=== PATIENT | male | born 1940 | race Caucasian/White ===

== ENCOUNTER 2024-12-01 18:05 | Emergency (ER) | payer MEDICARE, SELFPAY ==
[2024-12-01 18:06] VITALS: BP 150/79
[2024-12-01 18:42] VITALS: BMI 22.8
--- NOTE | 2024-12-01 20:23 | ED.GENMED ---
History of Present Illness
General
Chief Complaint: Musculo-Skeletal Complaint
Time Seen by Provider: 12/01/24 20:23
History of Present Illness
History of Present Illness:
REVIEW OF OLD RECORDS
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
Note:
CHIEF COMPLAINT(S)
Right ankle pain.
HISTORY OF PRESENT ILLNESS
The patient is an 84-year-old male who presented following an injury to the right ankle. According to the patient, the injury occurred while he was getting up from a low stool. He describes the incident as twisting his ankle while in the process of
standing up and turning. The patient explains that his foot rolled inward, resulting in a significant amount of pain in the right lateral malleolus region. He denies any associated symptoms such as head, neck, chest, or abdominal pain and confirms
the absence of pain in the contralateral ankle. The patient notes a sensation like 'somebodys sticking a needle' but only occasionally. He mentions a history of an umbilical hernia but no current knee pain.
PHYSICAL EXAM
- Nursing notes reviewed and vital signs reviewed.
- The tender area is over the right lateral malleolus with soft tissue swelling, suggestive of a sprain.
- No tenderness noted along the femur or tibia/fibula.
- No significant tenderness upon palpation of the foot bones
- General: Well appearing in no distress
- HEENT: Moist oral mucosa
- Cardiovascular: No chest wall tenderness
- Pulmonary: No respiratory distress
- Abdomen: Soft with no peritoneal signs, no tenderness
- Neurologic: Excellent strength all extremities, no coordination deficits
- Psychiatric: Appropriate mental status, normal insight and judgement
- Skin: No rash, no lesions
PLAN
1. Obtain and apply a splint to immobilize the right ankle. The splint can be removed as needed.
2. Review x-ray findings with radiology to confirm no acute fracture. The initial review indicates no fractures or need for surgical intervention.
3. Recommend elevation of the leg and limitation of weight-bearing activities as tolerated.
4. Discussed the option of pain management with medication; the patient currently manages pain with [id number] medications but can adjust as needed.
5. Advise follow-up should the pain persist or if there are changes in symptoms.
DIFFERENTIAL DIAGNOSIS
The Differential Diagnosis includes, in no particular order and is not limited to:
1. Ankle sprain
2. Ankle fracture
3. Achilles tendon injury
4. Anterior talofibular ligament tear
5. Calcaneal fracture
6. Osteoarthritis flare-up
7. Subtalar dislocation
8. Peroneal tendon injury
9. Sinus tarsi syndrome
10. Ankle impingement syndrome
CARE-UPDATE
12/01/24 - 20:53
The right ankle x-ray shows no acute abnormalities. The patient has been fitted with an splint and is to follow-up with orthopedics as an outpatient.
Past History
Past History
ED Past Medical History: Cancer (Gastric) and HTN
ED Past Surgical History: Cholecystectomy and Other
Patient has exhibited threatening behavior?: No
PSI?: No
Social History
Tobacco: Non-smoker
Phy Exam
Physical Exam
Physical Exam:
See HPI
Course
Orders/Labs/Results
Orders:
Orders
12/01/24 18:08
Ankle, Right 3 view CR [CR Ankle - Right Min 3 Views *] Urgent
Comment:
Reason For Exam: pain, injury
12/01/24 20:32
Air Splint Right-Treatment ONCE
Vital Signs
Initial and Last Documented VS:
Initial Vital Signs
Temp Pulse Resp BP Pulse Ox
36.3 C 67 16 150/79 98
12/01/24 18:06 12/01/24 18:06 12/01/24 18:06 12/01/24 18:06 12/01/24 18:06
Last Documented Vital Signs
Temp Pulse Resp BP Pulse Ox
36.3 C 67 16 150/79 98
12/01/24 18:06 12/01/24 18:06 12/01/24 18:06 12/01/24 18:06 12/01/24 18:06
*Pulse Oximetry
Patient hypoxic: no (98% on room air)
*Critical Care Note
Total Time (30-74mins, 75-104mins- exclusive of procedures): Not Applicable
ED Attending Note
-
Portions of this chart may have been created with voice recognition software.� Occasional wrong word or��sound alike� substitutions may have occurred due to the inherent limitations of voice recognition software.
Discharge Plan
Departure
Patient Disposition: Home (Routine Discharge)
Date of Disposition: 12/01/24
Time of Disposition: 20:51
Patient with high blood pressure during this ER visit?: Yes
Discharge Problem:
Right ankle sprain
Instructions: Ankle sprain, BLOOD PRESSURE
Prescriptions:
No Action
amlodipine 10 mg tablet
10 mg PO QPM
gabapentin 300 mg capsule
600 mg PO HS
cyanocobalamin (vitamin B-12) 1,000 mcg Tablet
1,000 mcg PO DAILY
aspirin 81 mg Tablet,Delayed Release (Dr/Ec)
81 mg PO DAILY
ascorbic acid (vitamin C) [Vitamin C] 500 mg Tablet
500 mg PO DAILY
bismuth subsalicylate [Pepto-Bismol] 262 mg/15 mL Suspension
524 mg PO QID PRN (Reason: gerd)
Referrals:
Dane Pérez MD [Active, Orthopedics]
Shira Guevara MD [Family Provider]
Activity Restrictions/Additional Instructions:
I do not see any clear sign of fracture on the ankle x-ray. If the radiologist sees something I did not I will call you later. I recommend that you follow-up with Dr. Pérez, orthopedics if symptoms persist or worsen. Tylenol is safest for pain.
Interventions
Interventions:
*Risk Screen - Suicide Last Done: 12/01/24 18:43
*General Assessment Last Done: 12/01/24 18:43
*Neglect/Abuse Screening Last Done: 12/01/24 18:43
*ED- Fall Risk Assessment Last Done: 12/01/24 18:43
*ED COVID-19 Vaccine History Last Done: 12/01/24 18:43
*Nursing Disposition Last Done: 12/01/24 20:59
ED-Musculoskeletal Assessment Last Done: 12/01/24 18:44
Discharge Date and Time
Discharge Date/Time: 12/01/24 21:00
Print Language: MAURITANIAN
== END 2024-12-01 21:00 | disposition home or self-care (01) ==
LOC: EMR 18:05
PROVIDERS: EMERGENCY PHYSICIAN Emergency Medicine; FAMILY PHYSICIAN Internal Medicine
DX: S93.401A Sprain of unspecified ligament of right ankle, initial encounter (principal); X58.XXXA Exposure to other specified factors, initial encounter; I10 Essential (primary) hypertension; Z90.49 Acquired absence of other specified parts of digestive tract
CPT/HCPCS: 99283; 73610

== ENCOUNTER 2025-01-05 15:36 | Emergency (ER) | payer MEDICARE, SELFPAY ==
[2025-01-05 15:38] VITALS: BP 126/68
--- NOTE | 2025-01-05 18:48 | ED.GENMED ---
History of Present Illness
General
Chief Complaint: Skin Problem
Source: patient and spouse
Exam Limitations: none
Time Seen by Provider: 01/05/25 17:50
History of Present Illness
History of Present Illness:
Patient fell 1 week ago. Injuring his left ankle and foot. Over the last week has been bearing weight and noticed some increased pain and redness today. No fever chills or systemic symptoms. No other injury or complaint
Past History
Past History
ED Past Medical History: Cancer (Gastric) and HTN
ED Past Surgical History: Cholecystectomy and Other
Patient has exhibited threatening behavior?: No
PSI?: No
Social History
Tobacco: Non-smoker
Review of Systems
Review of Systems
All Other Systems: Not applicable
Constitutional: Denies fever or chills
Phy Exam
Physical Exam
Physical Exam:
General: Nontoxic appearing in no distress
Skin: Warm and dry, no rash
Neuro: Alert, nontoxic, grossly nonfocal
Psychiatric: Good eye contact and appropriate
Musculoskeletal: Swelling to the lateral and medial malleolus with tenderness to the distal fibula and tibia. Proximal lower extremity without tenderness swelling or deformity. Knee is stable. Good distal pulses and color. No open wound. There
is some erythema and swelling to the dorsal foot with some ecchymosis of the foot.
Course
Orders/Labs/Results
Orders:
Orders
01/05/25 16:10
CR Ankle - Left Min 3 Views Urgent
Comment:
Reason For Exam: fall redness
Foot, Left 3 View [CR Foot - Left Min 3 Views] Urgent
Comment:
Reason For Exam: fall redness
01/05/25 18:47
boot [Ortho Boot Left- Treatment] ONCE
Short or tall?: Tall
Doxycycline [Vibramycin] 100 mg PO NOW STA
Vital Signs
Initial and Last Documented VS:
Initial Vital Signs
Temp Pulse Resp BP Pulse Ox
97.6 F 70 18 126/68 99
01/05/25 15:38 01/05/25 15:38 01/05/25 15:38 01/05/25 15:38 01/05/25 15:38
Last Documented Vital Signs
Temp Pulse Resp BP Pulse Ox
97.6 F 70 18 126/68 99
01/05/25 15:38 01/05/25 15:38 01/05/25 15:38 01/05/25 15:38 01/05/25 18:50
MDM/Problems Addressed
Differential Diagnosis Includes:
Distal fibula/tibia fracture. Discussed with orthopedics. Patient would have difficulty with total nonweightbearing with crutches. Cast boot and has a walker at home. Close orthopedic follow-up. There is some erythema to the dorsal foot that I
doubt is infectious. There is no open wound. However there is an erythematous component. Will cover with antibiotics to follow-up.
*Radiology
Radiology exam reviewed: preliminary read by ED provider (Distal fibula/tibia fracture with widening mortise) and radiology read reviewed (Same)
*Pulse Oximetry
SaO2: 99
Oxygen Mode of Delivery: Room air
Patient hypoxic: no
*Critical Care Note
Total Time (30-74mins, 75-104mins- exclusive of procedures): Not Applicable
ED Attending Note
-
Portions of this chart may have been created with voice recognition software.� Occasional wrong word or��sound alike� substitutions may have occurred due to the inherent limitations of voice recognition software.
Discharge Plan
Departure
Patient Disposition: Home (Routine Discharge)
Date of Disposition: 01/05/25
Time of Disposition: 18:50
Patient with high blood pressure during this ER visit?: Yes
Discharge Problem:
Left ankle fracture
Instructions: Ankle Fracture ED, BLOOD PRESSURE
Prescriptions:
New
doxycycline hyclate 100 mg capsule
100 mg PO BID 10 Days Qty: 20 0RF
No Action
amlodipine 10 mg tablet
10 mg PO QPM
gabapentin 300 mg capsule
600 mg PO HS
cyanocobalamin (vitamin B-12) 1,000 mcg Tablet
1,000 mcg PO DAILY
aspirin 81 mg Tablet,Delayed Release (Dr/Ec)
81 mg PO DAILY
ascorbic acid (vitamin C) [Vitamin C] 500 mg Tablet
500 mg PO DAILY
bismuth subsalicylate [Pepto-Bismol] 262 mg/15 mL Suspension
524 mg PO QID PRN (Reason: gerd)
Referrals:
Shira Guevara MD [Family Provider]
Dash Alves MD [Active, Orthopedics] - Follow up in 2-3 days
Activity Restrictions/Additional Instructions:
Take antibiotics as directed
The prescription was sent to your pharmacy
The orthopedic physician listed was the one I talked to. When you call for follow-up however he wanted you to see Dr. Yash Diego.
Make sure you get follow-up in the next 2 to 3 days
Try the best you can to be nonweightbearing with a cast boot
Keep the leg elevated
If the redness to the foot starts progressing up the leg more, fever, increased swelling� Return immediately for reevaluation
Interventions
Interventions:
*Risk Screen - Suicide Last Done: 01/05/25 15:38
*General Assessment Last Done: 01/05/25 15:38
*Neglect/Abuse Screening Last Done: 01/05/25 15:38
*ED- Fall Risk Assessment Last Done: 01/05/25 15:38
*ED COVID-19 Vaccine History Last Done: 01/05/25 15:38
*Nursing Disposition Last Done: 01/05/25 19:16
Discharge Date and Time
Discharge Date/Time: 01/05/25 19:17
Print Language: SALVADOREAN
[2025-01-05] MEDS: VIBRAMYCIN 100 MG PO (19:00)
== END 2025-01-05 19:17 | disposition home or self-care (01) ==
LOC: EMR 15:36
PROVIDERS: EMERGENCY PHYSICIAN Emergency Medicine; FAMILY PHYSICIAN Internal Medicine
DX: S82.302A Unspecified fracture of lower end of left tibia, initial encounter for closed fracture (principal); S82.55XA Nondisplaced fracture of medial malleolus of left tibia, initial encounter for closed fracture; L53.9 Erythematous condition, unspecified; W19.XXXA Unspecified fall, initial encounter; I10 Essential (primary) hypertension; Z90.49 Acquired absence of other specified parts of digestive tract; Z85.028 Personal history of other malignant neoplasm of stomach; Z87.442 Personal history of urinary calculi
CPT/HCPCS: 99283; 29515; 73610; 73630

== ENCOUNTER → 2025-03-23 11:57 | Outpatient (REF) | payer MEDICARE, SELFPAY | LOC: RAD 11:57 | PROVIDERS: ATTENDING PHYSICIAN Orthopaedic Surgery; FAMILY PHYSICIAN Internal Medicine | DX: S93.02XD Subluxation of left ankle joint, subsequent encounter (principal) | CPT/HCPCS: 73702; Q9967 ==

== ENCOUNTER → 2025-04-19 11:35 | Outpatient (REF) | payer MEDICARE, SELFPAY ==
[2025-04-19 12:59] VITALS: BP 179/81; BP_SYST 55
== END ==
LOC: RADI 11:35
PROVIDERS: ATTENDING PHYSICIAN Orthopaedic Surgery; FAMILY PHYSICIAN Internal Medicine
DX: M65.172 Other infective (teno)synovitis, left ankle and foot (principal)
CPT/HCPCS: 20605; 76942